=== PATIENT | male | born 2000 ===

== ENCOUNTER 2024-03-15 13:34 | Emergency (ER) | payer OTHER, SELFPAY ==
[2024-03-15 14:01] VITALS: BP 125/60; PULSE 89; RESP 16; TEMP 37; O2SAT 98; BMI 19.5
--- NOTE | 2024-03-15 14:05 | ED.GENADULT ---
HPI - General Adult General Chief complaint: Wound/Laceration Stated complaint: groin cyst Time Seen by Provider: 03/15/24 20:14 Source: patient Limitations: no limitations History of Present Illness ED Provider: Dee Gross PA-C HPI narrative: 23-year-old otherwise healthy male presents with left groin abscess x2 days. Patient developed 2 tender swelling within the left groin, 1 is adjacent to the superior portion of the scrotum. Denies fever. Patient has had recurrence in the same region. Related Data Previous Rx's ?Medication ?Instructions ?Recorded doxycycline hyclate 100 mg capsule 100 mg PO BID #14 caps 03/15/24 Allergies Allergy/AdvReac Type Severity Reaction Status Date / Time No Known Allergies [NKA] Allergy Mild NOT Verified 03/15/24 14:05 APPLICABLE pollen Allergy Unknown Eye Uncoded 03/15/24 14:05 Swelling Review of Systems Review of Systems: Yes all other systems are reviewed and are negative Constitutional: Constitutional: Reports fatigue and Denies fever(s) Integumentary/Breasts: Skin/Breast: Reports lesions and Reports erythema Endocrine: Endocrine: Reports fatigue PMFSH Past Medical History Attestation statement: The following information was validated with the patient. Social History Social History Advance Directives: No Advance Directives Information Provided: No Do you have a plan to hurt others: No Plan Physical Exam ED Vital Signs: Vital Signs - 24 hr 03/15/24 14:01 03/15/24 19:33 Temperature 98.6 F 98.3 F Pulse Rate 89 63 Respiratory Rate 16 15 Blood Pressure 125/60 123/78 Pulse Oximetry 98 99 Oxygen Delivery Method Room Air Room Air BMI result Body Mass Index 19.5 Const Other: Alert, well-appearing Orientation/consciousness: patient oriented x3 Resp Other: Nonlabored respiration Cardio Other: Normal peripheral perfusion Skin Other: Warm dry no rash Neuro General: patient oriented x3, no focal motor deficits and CN's II-XI intact bilaterally Extrem Other: To simple abscesses noted left groin, 1 over superior aspect of scrotum, the other within the inguinal region, both are indurated with central fluctuance, overlying erythema warmth, tender to palpation, no active purulence draining Psych Other: Anxious Course Course Course Narrative: This is a Rapid Medical Examination (RME) performed by Gerald Sow PA-C in triage. Full HPI, ROS, assessment and treatment plan per primary provider in the Main ED. 23 yo male here w/ dad for eval of cyst to groin . reports one on his testicles and the other on his groin. when asked if it is painful he states I don't know . reports shaving along the area but it doesn't look like an ingrown hair . + area not evaluated in triage d/t privacy concerns Plan: further evaluation in main ED needed. Procedures Abscess I/D Site: other (Groin to abscesses) Side (if applicable): left Sedation/analgesia: none Local Anesthetic: lidocaine 1% and with epi Amount of anesthesia used (mL): 3 Technique: incised with blade and ultrasound guided Amount of fluid expressed (mL): 1 Sent for culture/gram staining?: No Irrigation: No Packing used?: none Medical Decision Making Medical Decision Making MDM Narrative: 23-year-old otherwise healthy male presents with left groin abscess x2 days. Patient developed 2 tender swelling within the left groin, 1 is adjacent to the superior portion of the scrotum. Denies fever. Patient has had recurrence in the same region. No relevant chronic issues History: Per patient I have considered the following differential diagnoses: Cellulitis, purulent cellulitis, folliculitis, abscess, cyst, infected cyst Plan: The patient has 2 small abscesses, they could be cysts. I have viewed both sites with bedside ultrasound, they each have small fluid collections. They have recurred. We will I and D, place on doxy. He can follow up with the surgeon to discuss elective removal. Discharge Plan Discharge Clinical Impression: Abscess Patient Disposition: Home, Self-Care Instructions: Incision and Drainage (ED) Additional Instructions: Both sites were drained. See home care instructions. Take the doxycycline as directed. I provided you with an outpatient contact with 1 of our surgeons, so you can discuss elective removal, if the 2 lesions recur and are deemed to be cysts. Prescriptions: New doxycycline hyclate 100 mg capsule 100 mg PO BID Qty: 14 0RF Print Language: Slovenian
[2024-03-15 19:33] VITALS: BP 123/78; PULSE 63; RESP 15; TEMP 36.8; O2SAT 99
[2024-03-15] MEDS: Doxycycline Monohydrate 100 MG CAPSULE PO (21:36)
[2024-03-15 21:59] VITALS: BP 123/74; PULSE 63; RESP 14; TEMP 36.9; O2SAT 97
[2024-03-15 22:01] VITALS: BP 123/74; PULSE 63; RESP 14; TEMP 36.9; O2SAT 97
== END 2024-03-15 22:02 | disposition home or self-care (01) ==
PROVIDERS: Emergency Provider Emergency Medicine Emergency Medical Services
DX: L02.214 Cutaneous abscess of groin (principal); R10.32 Left lower quadrant pain
CPT/HCPCS: 10060; 99283; 99284

== ENCOUNTER 2024-04-04 14:14 | Outpatient (AMB) | payer OTHER, SELFPAY ==
--- NOTE | 2024-04-04 14:17 | A.OFFVIS_ITS ---
Vital Signs 04/04/24 14:20 Height 5 ft 11 in Weight 138 lb BMI 19.2 BP 132/57 L Blood Pressure Location Rt brachial Position Sitting Pulse 68 Intake Visit Reasons: multiple painful cysts torso/leg Intake Note: Patient referred after ER visit on 03-15-2024 for abscess on Lt groin. Reports Doxycycline course finished. Patient c/o: both sites groin and lt testicle look healed. Would like to have them excised if it recurs. Conduit Mechanic Required: No Accompanied by: Self / Same As Patient Allergies No Known Allergies [NKA] Allergy (Mild, Verified 04/04/24 14:22) NOT APPLICABLE pollen Allergy (Unknown, Uncoded 04/04/24 14:22) Eye Swelling HPI Comments Details: Patient presents for follow-up status post recent ER visit where he underwent I&D of 2 groin cyst. He is doing well. He says the wounds were completely healed. Completed his antibiotic course. Chart was reviewed and patient evaluated [facility] Social History (Updated 04/04/24 @ 14:23 by DRAGAN Lewis) Substance Use Type: Marijuana Physical Exam Vital Signs: Last Vital Signs Pulse 68 04/04/24 14:20 BP 132/57 L 04/04/24 14:20 BMI result Body Mass Index 19.2 Other: Patient was to resolved I&D sites of the groin. Each measures roughly 2 x 1 cm. Completely healed as noted. Assessment & Plan Assessment & Plan (1) Status post incision and drainage: Code(s): Z98.890 - Other specified postprocedural states Category: Medical Plan At present, no surgical issues. Should these cysts recur or become symptomatic, patient was instructed to call the office for follow-up. Otherwise he will follow-up p.r.n.. All questions answered. Coding Level of Care Code New Pt Level 4 (01769) Diagnoses Status post incision and drainage Z98.890
[2024-04-04 14:20] VITALS: BP 132/57; PULSE 68; BMI 19.2
== END 2024-04-04 14:25 | disposition home or self-care (01) ==
PROVIDERS: Visit Provider Surgery
DX: Z98.890 Other specified postprocedural states (principal)
CPT/HCPCS: 99204

== ENCOUNTER → 2024-04-04 14:14 | Outpatient (BNVA) | payer OTHER, SELFPAY | PROVIDERS: Visit Provider Surgery | DX: Z09 Encounter for follow-up examination after completed treatment for conditions other than malignant neoplasm (principal); Z87.2 Personal history of diseases of the skin and subcutaneous tissue; Z98.890 Other specified postprocedural states | CPT/HCPCS: 99202 ==

== ENCOUNTER 2024-08-07 13:24 | Outpatient (AMB) | payer OTHER, SELFPAY ==
--- NOTE | 2024-08-07 13:26 | MHC.OFFVIS ---
Intake Visit Reasons: multiple painful cysts torso/leg Intake Note: Patient here c/o multiple cysts on torso. Reports prior I&D cysts on groin area have healed well. Fabric Separator Operator Required: No Accompanied by: Mother Allergies No Known Allergies [NKA] Allergy (Mild, Verified 08/07/24 13:26) NOT APPLICABLE pollen Allergy (Unknown, Uncoded 08/07/24 13:26) Eye Swelling HPI Comments Details: Patient presents here with a family member. He has had history of left groin cyst infections in the past. He had most recent episode prior to this 1 in March were he required I&D x2 by the ER. Patient had a recurrence of this 4 days ago of the left groin cyst but it has completely resolved on today's presentation. Chart was reviewed and patient evaluated [facility] Social History (Updated 04/04/24 @ 14:23 by DRAGAN Lewis) Substance Use Type: Marijuana Physical Exam Other: At present, no evidence of any groin cyst , carbuncle or furuncle. Assessment & Plan Assessment & Plan (1) History of carbuncle of skin and subcutaneous tissue: Code(s): Z87.2 - Personal history of diseases of the skin and subcutaneous tissue Category: Surgical Plan Patient will be treated conservatively. No evidence of any surgical intervention required at this time. Should this process recur, patient and family member have instructed the abdomen returned to the office otherwise she will follow up p.r.n.. All questions answered. Coding Level of Care Code New Pt Level 4 (30600) Diagnoses History of carbuncle of skin and subcutaneous tissue Z87.2
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
== END 2024-08-07 13:38 | disposition home or self-care (01) ==
LOC: HO.HGS 13:24
PROVIDERS: Visit Provider Surgery
DX: L72.3 Sebaceous cyst (principal)
CPT/HCPCS: 99213

== ENCOUNTER → 2024-08-07 13:24 | Outpatient (BNVA) | payer OTHER, SELFPAY | PROVIDERS: Visit Provider Surgery | DX: Z87.2 Personal history of diseases of the skin and subcutaneous tissue (principal) | CPT/HCPCS: 99212 ==